=== PATIENT | female | born 1945 | race Caucasian/White ===

== ENCOUNTER 2018-10-20 19:29 | Emergency (ER) | payer OTHER ==
[~2018-10-20] VITALS: Ht 152.4 cm; Wt 52.2 kg
[2018-10-20 19:36] VITALS: BP 146/89
--- NOTE | 2018-10-20 19:45 | NUR ---
PT AMBULATED TO BED 1 WITH DAUGTHER.
--- NOTE | 2018-10-20 20:00 | NUR ---
PT WAS REFERRED TO ER BY [facility]RGENT [facility]ARE FOR ULTRASOUND. PT C/O DIFFUSE ABDOMINAL PAIN THROUGHOUT. ABDOMEN IS FIRM AND DISTENDED. BOWEL SOUNDS ARE HYPOACTIVE. PAIN LEVEL 4/10 AT REST, PAIN LEVEL 7/10 WITH PALPATION. PT STATES "THIS IS THE THIRD TIME I HAD ABDOMINAL PAIN THIS WEEK, TODAY IT WAS MORE SEVERE." PT DOES HAVE NAUSEA. LAST BM 10/20/18, [facility]. NO VOMITING. NKA. MED HX: HIGH CHOLESTEROL, hEMORRHOIDECTOMY 2005, AND LUMPECTOMY 1972. ERMD AT BEDSIDE.
[2018-10-20] MEDS ORDERED: NACL 0.9% 500 ML IV ONE (20:05)
[2018-10-20] MEDS ORDERED: MORPHINE SULFATE 4 MG/ML SYR IVP ONE (20:05)
[2018-10-20] MEDS ORDERED: ONDANSETRON 4 MG/2 ML VIAL IVP ONE (20:05)
[2018-10-20 20:17] LABS: APPEARANCE,URINE CLOUDY (CLEAR); BILIRUBIN,URINE NEGATIVE (NEGATIVE); BLOOD, URINE TRACE-I (NEGATIVE); COLOR,URINE YELLOW (YELLOW); LEUKOCYTE ESTERASE ,URINE TRACE (NEGATIVE); NITRITE, URINE POSITIVE (NEGATIVE); UGLUCOSE NEGATIVE (NEGATIVE)
[2018-10-20 20:17] LABS: BASOPHILS # (AUTO) 0.1 K/uL (0.00-0.22); BASOPHILS % (AUTO) 0.7 % (0.0-2.0); EOSINOPHILS % (AUTO) 0.3 % (0.0-4.0); HEMATOCRIT 40.1 % (36-48); HEMOGLOBIN 13.8 g/dL (12.0-16.0); LYMPHOCYTES # (AUTO) 1.6 K/uL (2.5-16.5); LYMPHOCYTES % (AUTO) 14.6 % (20.5-51.1); MEAN CORPUSCULAR HEMOGLOBIN 30 pg (27-31); MEAN CORPUSCULAR HGB CONC 34 g/dL (33-37); MEAN CORPUSCULAR VOLUME 88.1 fL (80-94); MONOCYTES # (AUTO) 0.5 K/uL (0.8-1.0); MONOCYTES % (AUTO) 4.3 % (1.7-9.3); NEUTROPHILS # (AUTO) 8.6 K/uL (1.8-7.7); NEUTROPHILS % (AUTO) 80.1 % (42.2-75.2); PLATELET COUNT (AUTO) 273 K/uL (140-450); RED BLOOD CELL COUNT(AUTO) 4.55 MIL/uL (4.20-5.40); RED CELL DISTRIBUTION WIDTH 14.5 % (11.6-13.7); WHITE BLOOD COUNT (AUTO) 10.8 K/uL (4.8-10.8)
--- NOTE | 2018-10-20 20:20 | NUR ---
PT REFUSED PAIN MEDICATION. PT STATES "MY PAIN IS BEARABLE RIGHT NOW." ERMD MADE AWARE.
[2018-10-20 20:23] LABS: RBC,URINE 0-5 /HPF (0-5)
--- NOTE | 2018-10-20 20:25 | NUR ---
XRAY AT BEDSIDE
--- NOTE | 2018-10-20 20:30 | NUR ---
ULTRASOUND AT BEDSIDE
[2018-10-20 20:37] LABS: CARBON DIOXIDE 26.3 mmol/L (21-32); CHLORIDE 105 mmol/L (98-107); POTASSIUM 4.3 mmol/L (3.5-5.1); SODIUM SERUM 142 mmol/L (136-145)
[2018-10-20 20:38] LABS: ASPARTATE AMINOTRANSFERASE 34 U/L (15-37); CREATININE 1.4 mg/dL (0.6-1.3); GLUCOSE 121 mg/dL (74-106); TOTAL BILIRUBIN 0.3 mg/dL (0.0-1.0); UREA NITROGEN, BLOOD 25 mg/dL (7-18)
[2018-10-20 20:39] LABS: ALBUMIN 3.9 g/dL (3.4-5.0); LIPASE 194 U/L (73-393)
--- NOTE | 2018-10-20 21:00 | NUR ---
PT RESTING IN BED COMFORTABLY WITH DAUGHTER AT BEDSIDE. VSS. WILL CONTINUE TO MONITOR.
[2018-10-20] MEDS ORDERED: LACTULOSE 20 GM/30 ML UDC PO ONE (21:10)
[2018-10-20] MEDS ORDERED: NITROFURANTOIN 100 MG CAP PO ONE (21:10)
--- NOTE | 2018-10-20 21:33 | NUR ---
Patient discharged with v/s stable. Written and verbal after care instructions given and explained. PT encouraged to drink plenty of fluids and increase fiber intake in diet. Patient alert, oriented and verbalized understanding of instructions. Ambulatory with steady gait. All questions addressed prior to discharge. ID band removed. Patient advised to follow up with PMD. Rx of Miralax and Macrobid was given. Patient educated on indication of medication including possible reaction and side effects. Opportunity to ask questions provided and answered.
[2018-10-20 21:34] VITALS: BP 142/77
== END 2018-10-20 21:33 | disposition home or self-care (01) ==
LOC: MED 19:29
DX: K59.00 Constipation, unspecified (principal); N39.0 Urinary tract infection, site not specified; N17.9 Acute kidney failure, unspecified; Z98.890 Other specified postprocedural states
CPT/HCPCS: 36415; 74018; 76700; 80053; 81001; 83690; 85025; 87086; 87186; 96374; 99284; J2405; J7030; Q0092; J2270

== ENCOUNTER 2023-09-14 07:37 | Day surgery (SDC) | payer MEDICARE, OTHER ==
[~2023-09-14] VITALS: Ht 152.4 cm; Wt 54.4 kg
[2023-09-14] MEDS ORDERED: fentaNYL citrate 0.05 MG/ML VIAL ONE (08:11)
[2023-09-14] MEDS ORDERED: LIDOCAINE 2% 100 MG/5 ML UJET TP ONE ×2 (08:11→11:30)
[2023-09-14] MEDS: fentaNYL citrate 0.05 MG/ML VIAL IVP ONE (08:23)
== END 2023-09-14 09:25 | disposition home or self-care (01) ==
LOC: MOR 07:37 → MMU 07:37 → MOR 09:25
PROVIDERS: ATTEND Internal Medicine Gastroenterology
DX: K62.5 Hemorrhage of anus and rectum (principal); K63.5 Polyp of colon; K57.30 Diverticulosis of large intestine without perforation or abscess without bleeding; K64.9 Unspecified hemorrhoids; I10 Essential (primary) hypertension; E78.5 Hyperlipidemia, unspecified; Z98.42 Cataract extraction status, left eye; Z98.41 Cataract extraction status, right eye
CPT/HCPCS: 45385; J3010